=== PATIENT | female | born 1995 | race Caucasian/White ===

== ENCOUNTER 2017-04-20 15:59 | Emergency (ER) | payer OTHER ==
[2017-04-20 17:12] VITALS: BP 110/67
--- NOTE | 2017-04-20 17:50 | UC ---
UC General HPI - HPI Summary HPI Summary: Patient is concerned about , has been trying to get , is one day past menses, no bleeding, + nausea, headache. no other symptoms, patient requesting test. no other symptoms. - History of Current Complaint Chief Complaint: UCGU Stated Complaint: TEST Time Seen by Provider: 04/20/17 17:43 Hx Obtained From: Patient Hx Last Menstrual Period: 03/19/17 Onset/Duration: Gradual Onset Current Severity: None - Allergy/Home Medications Allergies/Adverse Reactions: Allergies Allergy/AdvReac Type Severity Reaction Status Date / Time No Known Allergies Allergy Verified 04/20/17 17:12 Home Medications: Home Medications Sertraline* [Zoloft*] 50 mg PO BEDTIME 04/20/17 [History Confirmed 04/20/17] PMH/Surg Hx/FS Hx/Imm Hx Previously Healthy: Yes - Surgical History Surgical History: None - Social History Alcohol Use: Rare Substance Use Type: None Smoking Status (MU): Never Smoked Tobacco Review of Systems Gastrointestinal: Nausea Is Patient Immunocompromised?: No All Other Systems Reviewed And Are Negative: Yes Physical Exam Triage Information Reviewed: Yes Appearance: Well-Appearing, No Pain Distress, Well-Nourished Vital Signs: Initial Vital Signs Temp 97.6 F 04/20/17 17:07 Pulse 74 04/20/17 17:07 Resp 14 04/20/17 17:07 BP 110/67 04/20/17 17:07 Pulse Ox 100 04/20/17 17:07 Psychological Exam: Normal Skin Exam: Normal Course/Dx - Course Course Of Treatment: test negative, patietn educated onprenatal nutrition, follow up with continuous improvement specialist. - Differential Dx - Multi-Symptom Provider Diagnoses: negative, normal examination Discharge - Discharge Plan Condition: Good Disposition: HOME Patient Education Materials: Vitamins (By mouth) Referrals: Non Staff,Doctor [Primary Care Provider] - Additional Instructions: - Urine test negative - Continue to monitor symptoms, urine tests for in AM, increase fluid intake, begin taking vitamins - Follow up with [facility]
== END 2017-04-20 17:59 | disposition home or self-care (01) ==
LOC: UCCORT 15:59
DX: Z32.02 Encounter for pregnancy test, result negative (principal)
CPT/HCPCS: 84702; 99201; G0463